=== PATIENT | female | born 1990 | race Hispanic/Latino ===

== ENCOUNTER 2017-02-01 13:53 | Inpatient (IN) | payer MEDICAID, OTHER, SELFPAY ==
[2017-02-01 15:21] VITALS: BMI 26.0
[2017-02-01 15:58] LABS: Bilirubin Negative (Negative); Blood, Urine Negative (Negative); Glucose, Urine (Dipstick) Negative (Negative); Ketone, Urine Negative (Negative); Nitrite Negative (Negative); Protein, Urine (Dipstick) Negative (Neg-Trace); Urobilinogen 0.2 mg/dL (0.2-1.0)
[2017-02-01 16:00] LABS: Bacteria/HPF None Seen HPF (None Seen); RBC/HPF None Seen HPF (0-3); WBC/HPF 0-3 HPF (0-3)
[2017-02-01 16:13] LABS: Amnisure Test No Membranes Rupture (No Rupture)
[2017-02-01 16:15] LABS: Hyaline Casts/LPF 0-3 HYALINE CAST LPF (0-3 Hyaline); Squamous Epithelial 21-50 HPF (0-3)
--- NOTE | 2017-02-01 18:59 | ULT ---
OB ULTRASOUND: 02/01/17 HISTORY: Vaginal bleeding and placenta previa. FINDINGS: A single live intrauterine gestation is seen with measurements corresponding to a estimated gestatio nal age of 26 weeks, 3 days and ROSE at 05/07/17. Estimated weight measures 932 grams (2 lb, 1 o z). measurements are as follows: BPD 6.46 cm 26 weeks, 1 day HC 24.80 cm 26 weeks, 6 days AC 21.52 cm 26 weeks, 0 days FL 4.99 cm 26 weeks, 6 days heart rate measures 1.41 beats per minute. LETITIA measures 17.6 cm. Placenta is posteriorly locat ed with a marginal placenta previa (tip is at the internal os without covering the internal os parti ally or completely. A three vessel cord, cord insertion, kidneys, bladder, stomach, four chambered heart, lateral ventricles, cerebellum, spine, upper and lower extremities are visualized. No definite anomali es are seen. The cervix measures 4 cm in length. IMPRESSION: 1. Single live IUP of 26 weeks, 3 days estimated gestational age and ROSE at 05/07/17. 2. Marginal placenta previa. POS: [facility]
[2017-02-01] MEDS ORDERED: Fluconazole 100 MG TAB PO SCH (19:00)
--- NOTE | 2017-02-01 19:48 | HP ---
DATE OF ADMISSION: 02/01/2017 TIME OF SERVICE: 18:45. ADMITTING COMPLAINT: Brown vaginal discharge 26 weeks with partial placenta previa. HISTORY OF PRESENT ILLNESS: Ms. Tanna Raygoza is a 26-year-old 5, para 3 at 26 w eeks gestation is seen at [facility] by Dr. Dylon Vicente. OB HISTORY: Not available. Apparently, the patient has a history of a partial previa. She reports some brownish discharge. No contractions, no leakage of fluid. She denies vaginal intercourse. S he reports an active fetus. 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 No previous C-sections. PAST MEDICAL HISTORY: None. PAST SURGICAL HISTORY: None. ALLERGIES: Denies. MEDICATIONS: vitamins. SOCIAL HISTORY: Denies tobacco, alcohol or IV drug use. REVIEW OF SYSTEMS: Noncontributory. PHYSICAL EXAMINATION: VITAL SIGNS: Pulse 82, respirations 18, temperature 98.6 and blood pressure 118/72. HEENT: Within normal limits. LUNGS: Clear to auscultation bilaterally. HEART: Regular rhythm. BREASTS: No masses bilaterally. ABDOMEN: Soft and nontender. No rebound or guarding. No contractions noted. Fundal height is 26 cm. FHTs are 130s to 140s. PELVIC: Vulva is without lesions. Vagina is with slight brownish discharge. No active bleeding no nikhil. EXTREMITIES: Without clubbing, cyanosis or edema. LABORATORY AND X-RAY FINDINGS: STAKE SETTER-3 is positive for Soha. AmniSure is negative. fibronec tin is positive. Note that blood can cause a false positive fibronectin. Urinalysis is unrem arkable. Ultrasound reveals a placenta that remains low lying and the tip is at the level of the in ternal cervical os, by definition a marginal previa x4 cm cervical length, an LETITIA of 17. Composite gestational is 26 weeks 3 days and estimated weight of 932 grams, 2 pounds 1 ounce. IMPRESSION: 1. Marginal placenta previa. 2. Possible supracervical bleeding. 3. Vulvovaginal candidiasis. 4. Normal cervical length. 5. Positive fibronectin. PLAN: 1. I assumed that the patient's fibronectin is likely a false positive secondary to blood con tributing to her brownish discharge. However, with the previous, she is at elevated risk for preter m delivery and cannot be certain that the positive fibronectin is not significant. The cervic al exam is deferred. 2. We will admit for 24 hours to administer betamethasone x2 and treat the Soha with Diflucan. The patient will keep follow up with [facility].
[2017-02-01] MEDS ORDERED: Ondansetron ODT 4 MG TAB PO PRN (19:52)
[2017-02-01] MEDS ORDERED: Mag-Al 1200 mg/1200 mg/30 ML UDCUP PO PRN (19:52)
[2017-02-01] MEDS ORDERED: Zolpidem Tartrate 5 MG TAB PO PRN (19:52)
[2017-02-01] MEDS: Docusate 100 MG CAP PO SCH (20:07)
[2017-02-01] MEDS: Acetaminophen 325 MG TAB PO PRN (20:07)
[2017-02-01] MEDS: Betamet Acet/Betamet Na Ph 30 MG/5 ML VIAL IM SCH (20:10)
[2017-02-02 05:27] LABS: #Basophils 0.1 thou/uL (0.0-0.2); #Lymphocytes 0.9 thou/uL (1.20-3.40); #Monocytes 0.1 thou/uL (0.11-0.59); #Neutrophils 6.4 thou/uL (1.40-6.50); %Basophils 0.8 % (0.0-1.0); %Eosinophils 0.5 % (0.0-10.0); %Lymphocytes 11.8 % (21.0-51.0); %Monocytes 1.1 % (0.0-10.0); Hematocrit 39.9 % (36.0-47.0); Mean Platelet Volume 6.5 fL (7.4-10.4); Red Blood Cell (RBC) Count 4.21 mill/uL (4.20-5.40); White Blood Cell (WBC) Count 7.5 thou/uL (4.8-10.8)
[2017-02-02] MEDS: Acetaminophen 325 MG TAB PO PRN ×2 (08:45→18:00)
[2017-02-02] MEDS: Docusate 100 MG CAP PO SCH (08:45)
--- NOTE | 2017-02-02 08:50 | DIS ---
DATE OF ADMISSION: 02/01/2017 DATE OF DISCHARGE: 02/02/2017 The patient admitted by Dr. White. PRINCIPAL DIAGNOSES: 1. Second trimester . 2. Marginal placenta previa PROCEDURES PERFORMED: 1. ultrasound. 2. Betamethasone steroid administration. HOSPITAL COURSE: In brief, this patient was admitted by Dr. White as a patient with known marginal previa who was diagnosed in her care prior to her presenting. She had some brownish disch arge, but denied recent trauma or intercourse. She is a 26-year-old G5, P3 at 26 weeks who is seen at [facility] by Dr. Vicente. She does not have a prior history. Allergies were none. Elijah garland was admitted by Dr. White for observation of this bleeding. On his initial evaluation, there was no evidence of gross cervical dilation or of membrane ruptured. She did have a positive fibr onectin, but that may have been contaminated due to the brownish discharge/old blood in the vagina. She did have an ultrasound cervical length performed as well and the cervix was 4 cm in length. Th ere was also no gross evidence of funneling. Baby's heart tones were normal and the LETITIA was normal on that ultrasound as well. Ultrasound did confirm a posterior marginal placenta. She never had an y episode of true vaginal bleeding/overt bleeding or persistent contractions. She was kept for obse rvation and given Celestone as conservative management. I evaluated the patient on 02/02/2017 at 8: 25 in the morning on 3, in room 315. I found her to be clinically stable with no evidence of bleeding or labor. Although, she has positive fibronectin, the normal cervical le ngth was reassuring. I recommended that once we give her second dose of Celestone which will be thi s evening, she may be discharged home with her only restriction being no heavy lifting and no sexual intercourse. She was told to follow up at [facility] for another ultrasound in 2-4 weeks. Preter m labor precautions were also reviewed. The test findings were also reviewed. We will send the pat maximilain home after her Celestone administration today assuming she continues to be clinically stable at that time.
[2017-02-02] MEDS: Betamet Acet/Betamet Na Ph 30 MG/5 ML VIAL IM SCH (19:48)
[2017-02-02 21:45] VITALS: BP 122/67; TEMP 98.1
== END 2017-02-02 21:10 | disposition home or self-care (01) | DRG 781 ==
LOC: L&D/OP 13:53 → 3SE 19:51
PROVIDERS: ADMIT Obstetrics & Gynecology; ATTEND Obstetrics & Gynecology
DX: O44.22 Partial placenta previa NOS or without hemorrhage, second trimester (principal); O98.812 Other maternal infectious and parasitic diseases complicating pregnancy, second trimester; Z3A.26 26 weeks gestation of pregnancy; B37.3 Candidiasis of vulva and vagina
CPT/HCPCS: 36415; 76805; 81001; 82731; 84112; 85025; 87480; 87510; 87660; A4353; J0702

== ENCOUNTER 2017-03-17 20:08 | Day surgery (SDC) | payer OTHER ==
--- NOTE | 2017-03-17 21:26 | PDOC.EVN ---
Event Note - Event Note Event Note: 03/17/17 @ 2120: TRIAGE: Patient arrived to L&D while I was in the ER with an acute patient. This patient is a 25 yo (SVDs, no HX PTL) at 33 weeks 1 day by EDC of . here for irregular CTX. No VB, no LOF, no recent sex, no trauma. no fevers. last delivery 11 months ago. ROS: negative as per HPI. ALLERGIES: None Meds: NONE OB HX: SVDs at term. Surg: none Physical: 105/60 80 98.3 NAD Abd soft CX: 1-2/50/-2, BOWI MONITOR: Cat 1 at 130s, irregular and few CTX on toco. Assessment: threatened PTL at 33 weeks, last child 11 months ago. Plan: 1. FFN 2. Monitors 3. VP3 4. Await results
--- NOTE | 2017-03-17 21:43 | PDOC.EVN ---
Event Note - Event Note Event Note: 03/17/17 @ 2145: FFN is negative. We will give SC terb X 1 not for tocolysis but for maternal relief of contractions. Await VP3
[2017-03-17] MEDS ORDERED: Terbutaline Sulfate 1 MG/ML VIAL SC SCH (21:45)
--- NOTE | 2017-03-17 21:55 | PDOC.EVN ---
Event Note - Event Note Event Note: 03/17/17 @2158: patient states she received steroids earlier. Hortencia (patient's RN) and I reviewed her last L&D visit...cervical length was 2.8cm. We will give 1 Liter LR hydration as well for symptomatic relief. Neg FFN is reassuring. Plan D/W patient.
--- NOTE | 2017-03-17 21:56 | PDOC.EVN ---
Event Note - Event Note Event Note: BV on VP3..treat with flagyl X 1 week
[2017-03-17] MEDS ORDERED: Lactated Ringer's 1,000 ML IV SCH (22:00)
== END 2017-03-17 23:10 | disposition home or self-care (01) ==
LOC: L&D/OP 20:08
PROVIDERS: ATTEND Obstetrics & Gynecology
DX: O47.03 False labor before 37 completed weeks of gestation, third trimester (principal); Z3A.33 33 weeks gestation of pregnancy; Z79.899 Other long term (current) drug therapy; Z87.59 Personal history of other complications of pregnancy, childbirth and the puerperium
CPT/HCPCS: 82731; 87480; 87510; 87660; 96360; 96372; J3105

== ENCOUNTER 2017-04-14 19:34 | Day surgery (SDC) | payer OTHER ==
[2017-04-14 20:05] VITALS: BMI 29.2
[2017-04-14] MEDS ORDERED: Promethazine HCl 25 MG/ML VIAL IM/IV PRN (20:28)
--- NOTE | 2017-04-14 20:31 | PDOC.EVN ---
Event Note - Event Note Event Note: @2014 pt seen in triage as a 26 year old @ 37 weeks and 1 day with contractions. Pt has full H&P hand written in the chart. Pt of Dr. Vicente from [place]. Vitals stable, afebrile. Cervix 3 cm with irregular contractions. We will obs for 2 hours.
--- NOTE | 2017-04-14 22:06 | PDOC.EVN ---
Event Note - Event Note Event Note: @38559: no change in cervical exam per RN, domenic for outpatient follow up. Cat 1, DX: latent labor.
[2017-04-15] MEDS ORDERED: FLU VACC QS2017-18 36 mo. & older 0.5 ML SYRINGE IM ONE (09:00)
== END 2017-04-14 22:23 | disposition home or self-care (01) ==
LOC: L&D/OP 19:34
PROVIDERS: ATTEND Obstetrics & Gynecology
DX: O47.1 False labor at or after 37 completed weeks of gestation (principal); Z79.899 Other long term (current) drug therapy; Z3A.37 37 weeks gestation of pregnancy; Z98.890 Other specified postprocedural states
CPT/HCPCS: 99282

== ENCOUNTER 2017-04-18 00:02 | Day surgery (SDC) | payer OTHER ==
[2017-04-18 00:47] VITALS: BMI 32.5
[2017-04-18 01:32] VITALS: TEMP 97.9
--- NOTE | 2017-04-18 04:41 | HP ---
DATE OF SERVICE: 04/18/2017 CHIEF COMPLAINT: Contractions. HISTORY OF PRESENT ILLNESS: At the time of presentation, Ms. Danny Raygoza is a G5, P3, 37 weeks [address] Vicente for care. The patient presented to [facility] with co mplaints of contractions and was found to be 3 cm dilated. She has been 3 cm in her doctor's office earlier as well. Came by patient on vehicle to [facility] for further evaluation. The patient w as not having any contractions. She denies any vaginal bleeding or leakage of fluid. She denies any fever or chills, but does report some nasal congestion, mild cough as well as a mild frontal headach e. She denies any chest pain or shortness of breath. REVIEW OF SYSTEMS: Limited review of systems per HPI. HISTORY: Please see labor and delivery admission record included by reference. PHYSICAL EXAMINATION: VITAL SIGNS: Blood pressure 101/58, pulse 100, respiratory rate 18, temperature not charted. GENERAL: Nontoxic appearing female in no acute distress. OBSTETRIC: heart tracing is category 1 with rare contractions. GENITOURINARY: Deferred. LUNGS: Respirations are unlabored. ASSESSMENT AND PLAN: 1. A 37 weeks 5 day intrauterine with category 1 tracing. 2. Mild upper respiratory tract infection versus seasonal allergies. The patient is instructed that she can use Mucinex, plain Robitussin, and Tylenol for her symptoms. She has an appointment on and is encouraged to keep that appointment. The patient was instructed to return to [facility] eph to she have contractions that are 5 minutes apart or closer.
== END 2017-04-18 01:43 | disposition home or self-care (01) ==
LOC: L&D/OP 00:02
PROVIDERS: ATTEND Obstetrics & Gynecology
DX: O47.1 False labor at or after 37 completed weeks of gestation (principal); Z3A.37 37 weeks gestation of pregnancy; Z79.899 Other long term (current) drug therapy
CPT/HCPCS: 99281

== ENCOUNTER 2017-04-23 18:05 | Day surgery (SDC) | payer OTHER ==
[2017-04-23 18:56] VITALS: BMI 32.5
[2017-04-23 18:57] VITALS: BP 105/70; TEMP 98.2
--- NOTE | 2017-04-24 00:15 | PRG ---
DATE OF SERVICE: 04/23/2017 PRIMARY OB: Dr. Morales Vicente. CHIEF COMPLAINT: Abdominal pains. HISTORY OF PRESENT ILLNESS: The patient is a 26-year-old, G5, P3 female with an intrauterine pregnan cy at 38 weeks and 3 days, who is presenting to labor and delivery after experiencing abdominal pains at home that made her abdomen get hard. She denies any consistent uterine contractions. She does r eport she has a lot of pelvic and vaginal pain, particularly with walking and activity. She is sched uled for induction of labor on 04/30/2017 and is asking if she can be induced sooner because of the p ain she has been experiencing. The patient denies any fever. She does report she is experiencing a cold right now and has had diarrhea yesterday. She denies any chest pain or shortness of breath. Sh dada has had some nausea, denies vomiting. Denies any new rashes. Denies any vaginal bleeding or leaka ge of fluid or urinary urgency. PAST MEDICAL HISTORY: Negative. PAST SURGICAL HISTORY: Negative. ALLERGIES: No known drug allergies. SOCIAL HISTORY: Drug, alcohol, and tobacco use is negative. OB LABORATORY DATA: Blood type is O positive, antibody screen is negative. HIV is negative. RPR is nonreactive. Hepatitis B surface antigen is negative. She is rubella immune. REVIEW OF SYSTEMS: Per HPI. PHYSICAL EXAMINATION: VITAL SIGNS: Blood pressure is 105/70, heart rate of 87, respiratory rate of 18, satting 100% on los m air, temperature 98.4. GENERAL: She appears to be in no acute distress. She is alert and oriented, and cooperative and ple asant to interact with. HEAD: Normocephalic, atraumatic. LUNGS: Clear to auscultation bilaterally. HEART: Has regular rate. ABDOMEN: Gravid and soft. EXTREMITIES: Nontender, nonedematous. CERVICAL EXAM: Her cervical exam is unchanged from clinic evaluation last week 3, 15 -3 station with a repeat exam two hours later unchanged. heart tracing performed for threatened labor and abdominal pain, baseline is in the 130s with m oderate long-term variability, positive accelerations, no decelerations, duration is [address] shows contractions that have based over time at the end of 2 hours are now about 10 minutes apart . Patient reports that her contractions have decreased in intensity and duration and frequency. ASSESSMENT AND PLAN: The patient is a 26-year-old, G5, P3 female with an intrauterine at 3 8 weeks in latent labor. The patient is being discharged to home with term labor precautions and ins tructions to keep her appointment with Dr. Vicente's office this Friday.
== END 2017-04-23 21:45 | disposition home or self-care (01) ==
LOC: L&D/OP 18:05
PROVIDERS: ATTEND Obstetrics & Gynecology
DX: O99.89 Other specified diseases and conditions complicating pregnancy, childbirth and the puerperium (principal); R10.9 Unspecified abdominal pain; M54.9 Dorsalgia, unspecified; Z79.899 Other long term (current) drug therapy; Z3A.38 38 weeks gestation of pregnancy
CPT/HCPCS: 99283

== ENCOUNTER 2017-04-30 17:20 | Day surgery (SDC) | payer OTHER ==
--- NOTE | 2017-04-30 18:24 | PDOC.EVN ---
Event Note - Event Note Event Note: L&D Triage Patient of Dr Vicente. Was scheduled for elective iduction this PM but rescheduled due to lack of availability. Per Dr Vicente, she is to follow up tomorrow at clinic to reschedule induction. HPI: Patient is a 26 year old at 39 weeks 3 days here for vaginal pressure. No real CTX, no ROM, no PIH sxs, no decrease in movement. Wanted to be checked again. Was 3 cm last check. Review of systems: complete ROS done and per HPI. Past medical history: neg Allergies: none OB history: prior SVDs. Social History: negative X tobacco/ETOH/drugs use Physical Exam: 110/64, 98.2 NAD Size = dates on exam EFW 7 # CX: 3/75/-2/BOWI Monitors: Class I, few contractions Assessment: Multip at term, latent phase of labor (no signifcant cervical change from prior). Plan: 1. NST reactive 2. Outpatient follow up OK 3. Clinic in AM for recheck
== END 2017-04-30 18:40 | disposition home or self-care (01) ==
LOC: L&D/OP 17:20
PROVIDERS: ATTEND Obstetrics & Gynecology
DX: O47.1 False labor at or after 37 completed weeks of gestation (principal); Z3A.39 39 weeks gestation of pregnancy
CPT/HCPCS: 99281

== ENCOUNTER 2017-05-03 01:59 | Inpatient (IN) | payer MEDICAID, OTHER, SELFPAY ==
[2017-05-03] MEDS: Lactated Ringer's 1,000 ML IV SCH ×3 (02:13→21:55)
[2017-05-03] MEDS ORDERED: LR / Pitocin 40 units/1000 ml 1,000 ML ONE (02:18)
[2017-05-03] MEDS ORDERED: Lidocaine 1% (PF) 30 ML VIAL ONE (02:18)
[2017-05-03] MEDS ORDERED: LR / Pitocin 40 units/1000 ml 1,000 ML IV PRN (02:24)
[2017-05-03] MEDS ORDERED: Lidocaine 1% (PF) 30 ML VIAL SC PRN (02:24)
[2017-05-03] MEDS ORDERED: Promethazine HCl 25 MG/ML VIAL IM PRN (02:24)
--- NOTE | 2017-05-03 02:26 | PDOC.LDHP ---
Labor and Delivery H&P HPI: 26 yo admitted at 9cm, active labor. Current gestational age (weeks): 39 Dating criteria: last menstrual period Grav: 5 Para: 3 Current complications: none Current medications: none Previous surgical history: none Allergies/Adverse Reactions: Allergies Allergy/AdvReac Type Severity Reaction Status Date / Time No Known Allergies Allergy Verified 04/30/17 17:57 - Physical Exam Vital signs reviewed and normal: yes General: NAD Heart: RRR Abdomen: gravid FHT: category 1 [place] contractions every: Q3-5 - Vaginal Exam cm dilated: 9 Effacement: 90% Station: 0 - Assessment L&D Assessment: term patient in labor - Plan Plan: admit to L&D, observation in L&D, informed consent obtained, anesthesia consult for pain management
[2017-05-03 02:37] VITALS: BMI 35.2
--- NOTE | 2017-05-03 02:47 | PDOC.OPDEL ---
OB Operative/Delivery Note Delivery Dr/Surgeon: Adrian Assist: None Pre-Delivery Diagnosis: active labor, other (Precipitous delivery) Procedure/Post Delivery Dx: spontaneous vaginal delivery Weeks gestation: 39 Anesthesia: none - Additional Findings/Plan Placenta delivered: spontaneous Repaired Obstetrical Laceration: none Estimated blood loss: 200 Compilations/Other Findings: Vigorous female with Apgars 9/9, intact placenta delivered via Smith maneuver within 2 minutes of . 3VC. Post delivery plan: routine recovery
[2017-05-03] MEDS ORDERED: Lanolin Ointment 7 GM TUBE TOP PRN (02:48)
[2017-05-03] MEDS ORDERED: Acetaminophen/Codeine 30-300mg Tablet PO PRN ×2 (02:48)
[2017-05-03] MEDS ORDERED: diphenhydrAMINE 25 MG CAP PO PRN (02:48)
[2017-05-03] MEDS ORDERED: Preparation H Ointment 28 GM TUBE PR PRN (02:48)
[2017-05-03] MEDS ORDERED: Benzocaine/Menthol 20-0.5% 60 ML CAN TOP PRN (02:48)
[2017-05-03] MEDS ORDERED: Bisacodyl 10 MG SUPP PR PRN (02:48)
[2017-05-03] MEDS ORDERED: Milk Of Magnesia 30 ML UDCUP PO PRN (02:48)
[2017-05-03 02:49] LABS: Hemoglobin 13.5 g/dL (12.0-16.0); Mean Corpuscular Hemoglobin 30.7 pg (27.0-31.0); Mean Corpuscular Volume 90.3 fl (81.0-99.0); Platelet Count 289 thou/uL (130-400); RBC Distribution Width 12.3 % (11.5-14.5); Red Blood Cell (RBC) Count 4.39 mill/uL (4.20-5.40); White Blood Cell (WBC) Count 10.5 thou/uL (4.8-10.8)
[2017-05-03] MEDS: LR / Pitocin 40 units/1000 ml 1,000 ML IV SCH ×2 (03:20→04:44)
[2017-05-03 03:26] LABS: HBSAg Index 0.27 S/CO (0-0.99); HIV (1/2) Antibody/Antigen Non-Reactive (NonReactive); Hep B Surf Ag Non-Reactive S/CO (NonReactive)
[2017-05-03] MEDS ORDERED: Measles/Mumps/Rubella 10 MCG/0.5 ML VIAL SC ONE (04:00)
[2017-05-03] MEDS ORDERED: Adacel (T-DAP) 0.5 ML VIAL IM ONE (04:00)
[2017-05-03] MEDS ORDERED: Varicella virus, LIVE 0.5 ML VIAL SC ONE (04:00)
[2017-05-03 05:04] LABS: Syphilis Antibody Nonreactive (Nonreactive); Syphilis Antibody Index 0.04 S/CO (<1.00 Non-Reactive)
[2017-05-03] MEDS: Ibuprofen 800 MG TAB PO SCH ×3 (05:24→21:53)
--- NOTE | 2017-05-03 07:03 | PDOC.PP ---
Post Progress Note Post Day #: 4 hours Subjective: Resting, doing well PO intake tolerated: yes Flatus: yes Ambulation: yes Vital Signs (12 hours) Temp Pulse Resp BP 05/03/17 06:30 98.3 F 73 16 103/61 05/03/17 05:30 86 16 113/68 05/03/17 05:00 98.3 F 93 16 102/58 L 05/03/17 02:48 99.4 F 05/03/17 02:30 99.4 F 116 H 24 H 05/03/17 02:02 99.4 F 116 H 24 H 139/99 H Weight Weight 180 lb - Physical Examination General: NAD Cardiovascular: no m/r/g Abdominal: + bowel sounds, lochia, no distention Neurological: no gross focal deficits Psychiatric: A&Ox3, normal affect Result Diagrams: 05/03/17 02:26 Additional Labs: Post Labs Hep Bs Antigen Non-Reactive S/CO (NonReactive) 05/03/17 02:26 (1) Vaginal delivery Code(s): O80 - ENCOUNTER FOR FULL-TERM UNCOMPLICATED DELIVERY Status: Acute - Assessment/Plan Day 0, continue in-house observations.
[2017-05-03] MEDS: Ferrous Sulfate 325 MG TAB PO SCH ×2 (09:30→17:15)
[2017-05-03] MEDS: Docusate Calcium (SURFAK) 240 MG CAP PO SCH ×2 (09:31→21:53)
[2017-05-03] MEDS: Prenatal Vitamin 1 TAB PO SCH (09:31)
[2017-05-04] MEDS: Lactated Ringer's 1,000 ML IV SCH (03:34)
[2017-05-04] MEDS: Ibuprofen 800 MG TAB PO SCH (05:17)
[2017-05-04 06:34] LABS: Hemoglobin 8.3 g/dL (12.0-16.0); Mean Corpuscular HGB CONC 33.4 g/dL (32.0-36.0); Mean Corpuscular Hemoglobin 31.2 pg (27.0-31.0); Mean Corpuscular Volume 93.4 fl (81.0-99.0); Mean Platelet Volume 6.4 fL (7.4-10.4); Platelet Count 242 thou/uL (130-400); RBC Distribution Width 12.4 % (11.5-14.5); Red Blood Cell (RBC) Count 2.67 mill/uL (4.20-5.40)
--- NOTE | 2017-05-04 07:59 | PDOC.PP ---
Post Progress Note Post Day #: 1 PO intake tolerated: yes Flatus: yes Ambulation: yes Vital Signs (12 hours) Temp Pulse Resp BP Pulse Ox 05/04/17 00:08 98.1 F 83 18 103/52 L 05/03/17 20:24 98.2 F 95 18 107/56 L 98 Weight Weight 180 lb - Physical Examination General: NAD Cardiovascular: no m/r/g, RRR Respiratory: clear to auscultation bilaterally Abdominal: + bowel sounds, lochia Extremities: negative homans (B) Neurological: no gross focal deficits Psychiatric: A&Ox3 Result Diagrams: 05/04/17 05:48 Additional Labs: Post Labs Hep Bs Antigen Non-Reactive S/CO (NonReactive) 05/03/17 02:26 (1) Vaginal delivery Code(s): O80 - ENCOUNTER FOR FULL-TERM UNCOMPLICATED DELIVERY Status: Acute - Assessment/Plan ppd number 1 multip. dc home .
[2017-05-04] MEDS: Prenatal Vitamin 1 TAB PO SCH (10:39)
[2017-05-04] MEDS: Docusate Calcium (SURFAK) 240 MG CAP PO SCH (10:39)
[2017-05-04 10:51] VITALS: BP 111/58; TEMP 98.4
[2017-05-04] MEDS: Ferrous Sulfate 325 MG TAB PO SCH (10:51)
== END 2017-05-04 16:34 | disposition home or self-care (01) | DRG 775 ==
LOC: L&D/OP 01:59 → L&D 02:25 → 3SW 05:52
PROVIDERS: ADMIT Obstetrics & Gynecology; ATTEND Obstetrics & Gynecology
PROC: 10E0XZZ Delivery of Products of Conception, External Approach (ICD-10-PCS; principal; 2017-05-03)
PROC: 4A0HXCZ Measurement of Products of Conception, Cardiac Rate, External Approach (ICD-10-PCS; 2017-05-03)
DX: O62.3 Precipitate labor (principal); Z37.0 Single live birth; Z3A.39 39 weeks gestation of pregnancy
CPT/HCPCS: 36415; 51701; 85027; 86780; 87340; 87389; 99285; J2001

== ENCOUNTER 2019-03-09 09:02 | Outpatient (CLI) | payer OTHER ==
--- NOTE | 2019-03-09 10:08 | ULT ---
EXAM: OB ultrasound COMPARISON: None HISTORY: female. Evaluate size, dates, and anatomy. TECHNIQUE: Multiplanar grayscale and color Doppler transabdominal sonographic images are obtained. FINDINGS: There is a single intrauterine gestation in cephalic presentation. Cardiac Doppler demonstr ates heart tones with a heart rate of 152 beats per minute. The placenta is located anteriorly, and the placenta is low-lying.. There is a normal amount of amniotic fluid with an amniot ic fluid index of 13.3 centimeters. The cervical length based on transabdominal imaging measures 3.05 centimeters. biometry measurements: BPD 4.95 cm -- 21 weeks HC 17.75 cm -- 20 weeks 2 days AC 16.24 cm -- 21 weeks 3 days FL 3.27 cm -- 20 weeks 2 days The estimated gestational age by ultrasound is 20 weeks 6 days with an ROSE on07/21/2019. Gestational a ge by the last menstrual period is 20 weeks 5 days. The estimated weight by ultrasound is 376 g (13 ounces). This represents 48 percentile for feta l weight. A 4 chambered heart is visualized. The cerebellum, visualized portions of the spine, kidneys, u rinary bladder, and cord insertion demonstrate a normal sonographic appearance. A three-vessel cord is not visualized, but there is flow on either side of the urinary bladder sugges ting a three-vessel cord.. No anomalies are seen. IMPRESSION: 1. The placenta is low lying. Follow-up evaluation in 4-6 weeks is recommended. 2. Single intrauterine gestation in cephalic presentation with heart tones documented. Estimat ed gestational age by ultrasound is 20 weeks 6 days. 3. Estimated weight is 376 g (13 ounces). 4. Amniotic fluid index is 13.3 centimeters.
== END 2019-03-09 09:03 | disposition home or self-care (01) ==
LOC: BICULT 09:02
PROVIDERS: ATTEND Family Medicine
DX: O09.892 Supervision of other high risk pregnancies, second trimester (principal); O44.42 Low lying placenta NOS or without hemorrhage, second trimester; Z3A.20 20 weeks gestation of pregnancy
CPT/HCPCS: 76805

== ENCOUNTER 2019-04-07 19:58 | Day surgery (SDC) | payer OTHER ==
[2019-04-07 20:42] VITALS: BMI 28.5
[2019-04-07] MEDS ORDERED: hydrALAZINE 20 MG/ML VIAL SLOW IVP PRN (21:14)
[2019-04-07 21:51] LABS: Bacteria/HPF None Seen HPF (None Seen); Bilirubin Negative (Negative); Blood, Urine Negative (Negative); Clarity Turbid (Clear); Glucose, Urine (Dipstick) Normal (Negative); Leukocyte Negative Leu/uL (Negative); Nitrite Negative (Negative); Protein, Urine (Dipstick) Negative (Neg-Trace); RBC/HPF 0-3 HPF (0-3); Squamous Epithelial 0-3 HPF (0-3); Urobilinogen Normal mg/dL (Less than 2); WBC/HPF 0-3 HPF (0-3)
[2019-04-07] MEDS ORDERED: Benzocaine-Menthol 82.5 ML CAN TOP PRN (22:12)
--- NOTE | 2019-04-08 08:06 | PRG ---
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 HISTORY OF PRESENT ILLNESS: The patient is a 28-year-old female, G6, P4 with an intrauterine at 25 weeks' gestation, presenting with vulvar and vaginal pain. She reports this began last Friday or Friday, began having a lot of itching and irritation that has become more and more inflamed as the days have gone by. She reports redness and irritation that has been unresolved with home remedies. The patient denies any fever, fall, headache, chest pain, shortness of breath, nausea, vomiting, diarrhea, constipation, any other rashes, hip problems, knee problems, muscle weakness, vaginal bleeding, urinary urgency or frequency. The patient denies any history of herpes. PAST MEDICAL HISTORY: Negative. PAST SURGICAL HISTORY: Negative. ALLERGIES: NO KNOWN DRUG ALLERGIES. MEDICATIONS: vitamins. SOCIAL HISTORY: Denies drug, alcohol, or tobacco use. OB LABS: Blood type is O positive. She is rubella immune. RPR is negative. Hepatitis B surface antigen is negative. HIV is negative. MEDICATIONS: The patient has been on vitamins and aspirin. REVIEW OF SYSTEMS: Per HPI. PHYSICAL EXAMINATION: VITAL SIGNS: Blood pressure is 109/59, pulse of 71, respiratory rate of 20, and temperature 97.7. GENERAL: She appears to be in no acute distress. She is alert and oriented, cooperative and pleasant to interact with. HEENT: Head is normocephalic, atraumatic. LUNGS: Clear to auscultation bilaterally. HEART: Has regular rate and rhythm. ABDOMEN: Gravid and soft. EXTREMITIES: Nontender, nonedematous. GENITOURINARY: Vulva has some minor erythema, but is exquisitely tender to palpation, particularly in her labia minora and this tubular region. On close inspection, there were no ulcerations visible. She has no discharge and the skin does not look significantly swollen or inflamed. On sterile speculum exam, this patient has significant discharge in plaquing on the sidewalls. Cervix is visible and closed. VPIII was collected. Fetus has baseline in the 140s with moderate long-term variability, appropriate for 25 weeks' gestation. Tocometer is free of any contractions. VPIII is positive for Soha. Negative for Gardnerella or Trichomonas. Urinalysis is negative for protein, glucose, ketones, nitrites, leukocyte esterase, bacteria, and white blood cells. ASSESSMENT AND PLAN: The patient is a 28-year-old female experiencing a vulvovaginitis from Soha infection. She has been given Dermoplast spray, which she has been asked to use liberally. She has also been counseled to get [id number] Monistat cream to place vaginally and also on her labia for the next 7 days. She has instructions to follow up with her primary OB if this is not showing improvement. Fetus has a category I strip and reassuring for gestational age. The patient is being discharged home, has instructions to follow up with her OB as scheduled, given no further complications. Job ID: [id number]
== END 2019-04-07 22:45 | disposition home or self-care (01) ==
LOC: L&D/OP 19:58
PROVIDERS: ATTEND Family Medicine
DX: O98.812 Other maternal infectious and parasitic diseases complicating pregnancy, second trimester (principal); B37.3 Candidiasis of vulva and vagina; Z3A.25 25 weeks gestation of pregnancy
CPT/HCPCS: 36416; 81001; 87480; 87510; 87660; 99284

== ENCOUNTER 2019-07-02 15:50 | Day surgery (SDC) | payer OTHER ==
[2019-07-02 16:35] VITALS: BMI 34.0
[2019-07-02] MEDS ORDERED: hydrALAZINE 20 MG/ML VIAL SLOW IVP PRN (17:14)
[2019-07-02] MEDS ORDERED: Lactated Ringer's 1,000 ML IV SCH (17:15)
--- NOTE | 2019-07-02 17:35 | HP ---
TIME: 1715 hours. LOCATION: Labor and Delivery Triage. The patient of Dr. Luciano. CHIEF COMPLAINT: "Heart rate fast." HISTORY OF PRESENT ILLNESS: This is a 28-year-old, G8, P4, with all vaginal deliveries, who is currently at 37 weeks to 38 weeks with a due date of July 21 with a complaint of "heart rate which is fast." She denies shortness of breath, chest pain, dizziness, loss of consciousness, vaginal bleeding, leakage of fluid, or contractions. She has good movement. She states that she feels better now, but she wanted evaluation. REVIEW OF SYSTEMS: Complete review of systems was checked and is otherwise negative unless specified in the HPI. PAST MEDICAL HISTORY: Negative. PAST SURGICAL HISTORY: None. ALLERGIES: NONE REPORTED. MEDICATIONS: vitamins. SOCIAL HISTORY: Negative for alcohol, tobacco, or drug use. PHYSICAL EXAMINATION: VITAL SIGNS: Her temperature is 98.3, pulse is 69 to 73, and blood pressure is 118/53. GENERAL: She is in no acute distress. ABDOMEN: Soft and nontender. There is no gross evidence of bleeding or leakage of fluid. CERVICAL: Deferred as there is no real evidence or complaints of contractions. monitor: heart rate is about 130 to 140 with moderate variability and accelerations. There are no pathological decelerations. On tocodynamometer, there may be some uterine irritability, but no contraction pattern. ASSESSMENT: This is a 28-year-old multigravida at 37 weeks with a complaint of "rapid heart rate." She appears clinically stable and does not appear to be in acute distress. PLAN: 1. Reassurance given. 2. We will order her 1 L of LR fluid for conservative care. 3. Continue monitor for now. 4. I have ordered an EKG just to be conservative in her management and to make sure we are not missing any irregular rhythm. Job ID: [id number]
--- NOTE | 2019-07-02 19:04 | PDOC.EVN ---
Event Note - Event Note Event Note: EKG has returned normal sinus. OK for outpatient care. Clinically well
[2019-07-02] MEDS ORDERED: Ondansetron PF 4 MG/2 ML Vial ONE (19:27)
[2019-07-02] MEDS ORDERED: Ondansetron PF 4 MG/2 ML Vial SLOW IVP SCH (20:15)
== END 2019-07-02 20:00 | disposition home health service (06) ==
LOC: L&D/OP 15:50
PROVIDERS: ATTEND Family Medicine
DX: O99.89 Other specified diseases and conditions complicating pregnancy, childbirth and the puerperium (principal); R00.0 Tachycardia, unspecified; Z3A.37 37 weeks gestation of pregnancy
CPT/HCPCS: 93005; 93010; 96360; 96361; 96375; 99283; J2405

== ENCOUNTER 2019-07-13 09:35 | Day surgery (SDC) | payer OTHER ==
[2019-07-13] MEDS ORDERED: hydrALAZINE 20 MG/ML VIAL SLOW IVP PRN (10:36)
--- NOTE | 2019-07-14 09:41 | SS ---
DATE OF ADMISSION: 07/13/2019 DATE OF DISCHARGE: 07/13/2019 REGULAR PHYSICIAN: Charles Luciano MD EVALUATING PHYSICIAN: Vineet Nunez MD CHIEF COMPLAINT: Complaining of contractions, requests that her water be broken. HISTORY OF PRESENT ILLNESS: Ms Danny Raygoza is a 28-year-old G6, P4, with an estimated date of confinement of 07/22/2019, who presents complaining of irregular contractions at home, now requesting that we break her water. She denies ruptured membranes, but does report occasional spotting. She denies decreased movement. Her care has been with Dr. Luciano. PAST OBSTETRICAL HISTORY: Includes 4 vaginal deliveries at term and one early miscarriage. PAST MEDICAL HISTORY: None. PAST SURGICAL HISTORY: None. CURRENT MEDICATIONS: vitamins. ALLERGIES: NO KNOWN ALLERGIES. SOCIAL HISTORY: Denies tobacco, alcohol, or drug use. FAMILY HISTORY: Unremarkable. REVIEW OF SYSTEMS: Denies nausea, vomiting, fever, chills, ruptured membranes, or decreased movement. PHYSICAL EXAMINATION: VITAL SIGNS: In triage, her vital signs are stable. She is afebrile. GENERAL: She is pleasant and in no acute distress. PELVIC: Shows the cervix to be 4 cm dilated, 80% effaced, and the vertex at -1. This is similar to her exam in Dr. Luciano's office earlier this week. heart rate tracing is stable with accelerations. No decelerations are seen. Only irregular contractions are noted. The patient is allowed to walk for 2 hours and is reexamined. No cervical change is seen. The same labor nurse checked her both times. Uterine contractions are now every 13 to 18 minutes and she is not uncomfortable. ASSESSMENT: 1. 38 and 5/7th-week intrauterine . 2. No evidence of active labor at this time. PLAN: The patient was given labor precautions using the manager money. She voiced understanding of her discharge instructions and has an appointment scheduled with Dr. Luciano for followup. Job ID: [id number]
== END 2019-07-13 13:20 | disposition home or self-care (01) ==
LOC: L&D/OP 09:35
PROVIDERS: ATTEND Family Medicine
DX: O47.1 False labor at or after 37 completed weeks of gestation (principal); O26.853 Spotting complicating pregnancy, third trimester; Z3A.38 38 weeks gestation of pregnancy
CPT/HCPCS: 99282

== ENCOUNTER → 2019-07-16 16:53 | Inpatient (IN) | payer MEDICAID, OTHER, SELFPAY ==
[2019-07-15 06:34] VITALS: BMI 31.8
[2019-07-15 07:28] LABS: Hemoglobin 11.8 g/dL (12.0-16.0); Mean Corpuscular HGB CONC 33.8 g/dL (32.0-36.0); Mean Corpuscular Hemoglobin 29.3 pg (27.0-31.0); Mean Corpuscular Volume 86.7 fL (78.0-98.0); Mean Platelet Volume 7.2 fL (7.4-10.4); Platelet Count 203 thou/uL (130-400); RBC Distribution Width 13.2 % (11.5-14.5); Red Blood Cell (RBC) Count 4.03 mill/uL (4.20-5.40); White Blood Cell (WBC) Count 5.4 thou/uL (4.8-10.8)
[2019-07-15 08:15] LABS: Hep B Surf Ag Non-Reactive S/CO (NonReactive); Syphilis Antibody Nonreactive (Nonreactive); Syphilis Antibody Index 0.04 S/CO (<1.00 Non-Reactive)
[2019-07-15] MEDS: Ibuprofen 800 MG TAB PO SCH ×2 (15:21→21:34)
[2019-07-15] MEDS: Ferrous Sulfate 325 MG TAB PO SCH (15:23)
[2019-07-15] MEDS: Docusate Calcium (SURFAK) 240 MG CAP PO SCH (21:34)
[2019-07-16] MEDS: Ibuprofen 800 MG TAB PO SCH ×2 (05:40→13:51)
[2019-07-16 05:49] LABS: Mean Corpuscular HGB CONC 34.4 g/dL (32.0-36.0); Mean Corpuscular Hemoglobin 30.2 pg (27.0-31.0); Mean Corpuscular Volume 87.8 fL (78.0-98.0); Mean Platelet Volume 6.8 fL (7.4-10.4); Platelet Count 192 thou/uL (130-400); RBC Distribution Width 13.3 % (11.5-14.5); Red Blood Cell (RBC) Count 3.32 mill/uL (4.20-5.40); White Blood Cell (WBC) Count 5.3 thou/uL (4.8-10.8)
[2019-07-16 08:00] VITALS: BP 108/62; TEMP 97.7
[2019-07-16] MEDS: Ferrous Sulfate 325 MG TAB PO SCH ×2 (08:14→16:37)
[2019-07-16] MEDS: Docusate Calcium (SURFAK) 240 MG CAP PO SCH (08:14)
[~2019-07-16 16:53] MED LIST: Acetaminophen 500 MG TAB PO PRN; Adacel (T-DAP) 0.5 ML SYRINGE IM ONE; Bisacodyl 10 MG SUPP PR PRN; Butorphanol Tartrate 1 MG/ML VIAL SLOW IVP PRN; Carboprost 250 MCG/ML AMP IM PRN; Diphenoxylate HCl/Atropine Tablet PO PRN; HYDROcodone/Acetaminophen 5/325 mg Tablet PO PRN; Ibuprofen 800 MG TAB PO PRN; Lactated Ringer's 1,000 ML IV SCH; Lanolin Ointment 7 GM TUBE TOP PRN; Lidocaine 1% (PF) 30 ML VIAL SC PRN; Methylergonovine 0.2 MG/ML VIAL IM PRN; Milk Of Magnesia 30 ML UDCUP PO PRN; Misoprostol 200 MCG TAB PR PRN; NS / Oxytocin 40 units/1000ml 1,000 ML IV PRN; NS / Oxytocin 40 units/1000ml 1,000 ML IV SCH; NS w/ Oxytocin 10 units 500 ML IV SCH; Ondansetron PF 4 MG/2 ML Vial IVP PRN; Prenatal Vitamin 1 TAB PO SCH; Promethazine HCl 25 MG/ML VIAL IM PRN; diphenhydrAMINE 25 MG CAP PO PRN; hydrALAZINE 20 MG/ML VIAL SLOW IVP PRN
== END | disposition home or self-care (01) | DRG 807 ==
LOC: L&D 07-15 06:01 → 3SE 07-15 12:13
PROVIDERS: ADMIT Family Medicine; ATTEND Family Medicine
PROC: 10E0XZZ Delivery of Products of Conception, External Approach (ICD-10-PCS; principal; 2019-07-15)
PROC: 10907ZC Drainage of Amniotic Fluid, Therapeutic from Products of Conception, Via Natural or Artificial Opening (ICD-10-PCS; 2019-07-15)
PROC: 3E033VJ Introduction of Other Hormone into Peripheral Vein, Percutaneous Approach (ICD-10-PCS; 2019-07-15)
DX: O80 Encounter for full-term uncomplicated delivery (principal); Z37.0 Single live birth; Z3A.39 39 weeks gestation of pregnancy
CPT/HCPCS: 36415; 85027; 86780; 86850; 86900; 86901; 87340; J0360; J2590

== ENCOUNTER 2024-06-21 20:14 | Emergency (ER) | payer SELFPAY ==
[2024-06-21 21:09] LABS: #Basophils 0.03 10x3/uL (0.0-0.2); %Basophils 0.6 % (0.0-1.0); %Eosinophils 3.9 % (0.0-10.0); %Lymphocytes 30.9 % (21.0-51.0); %Monocytes 6.2 % (0.0-10.0); Hemoglobin 10.8 g/dL (12.0-16.0); Mean Corpuscular HGB CONC 32.7 g/dL (32.0-36.0); Mean Corpuscular Hemoglobin 29.8 pg (27.0-31.0); Mean Corpuscular Volume 91.2 fL (78.0-98.0); Mean Platelet Volume 9.3 fL (7.4-10.4); Platelet Count 328 10x3/uL (130-400); RBC Distribution Width 13.1 % (11.5-14.5); Red Blood Cell (RBC) Count 3.62 mill/uL (4.20-5.40)
[2024-06-21 21:19] LABS: BHCG - Serum Negative (NEGATIVE); Pregs Control Background? CLEAR/WHITE (CLR/WHITE); Pregs Control Bar Appear? YES (CONTROL BAR)
[2024-06-21 21:27] LABS: ALT (SGPT) 32 U/L (Less than 34); AST (SGOT) 36 U/L (11-34); Albumin 3.5 g/dL (3.1-4.5); Alkaline Phosphatase 117 U/L (40-110); Anion Gap 14 mmol/L (10-20); BUN (Urea Nitrogen) 13 mg/dL (7.0-18.7); Bilirubin, Total 0.2 mg/dL (0.3-1.2); Calc. Creatinine Clearance 0 mL/min (70-130); Calcium 9.7 mg/dL (7.8-10.44); Carbon Dioxide 27 mmol/L (22-29); Chloride 105 mmol/L (98-107); Estimated GFR 117; Globulin 3.9 g/dL (2.4-3.5); Glucose 151 mg/dL (70-105); Potassium 4.1 mmol/L (3.5-5.1); Protein, Total 7.4 g/dL (6.0-8.3); Sodium 142 mmol/L (136-145)
[2024-06-21] MEDS ORDERED: Meclizine HCl 25 MG TAB ONE (22:51)
[2024-06-21] MEDS ORDERED: Ondansetron ODT 4 MG TAB ONE (22:51)
[2024-06-21] MEDS ORDERED: Ibuprofen 800 MG TAB ONE (22:51)
[2024-06-21 23:07] LABS: Troponin I Less than 0.010 ng/mL (< 0.028)
== END 2024-06-21 23:29 | disposition home or self-care (01) ==
LOC: ERS 20:14
DX: R42 Dizziness and giddiness (principal)
CPT/HCPCS: 36415; 70450; 71045; 80053; 84484; 84703; 85025; 93005; Q0162